=== PATIENT | male | born 1965 | race Two or more races ===

== ENCOUNTER 2019-05-03 19:53 | Emergency (ER) | payer MEDICAID ==
[~2019-05-03] VITALS: Ht 165.1 cm; Wt 78.9 kg
--- NOTE | 2019-05-03 20:10 | NUR ---
ED Nurse Note: Pt ambulated to ED from home c/o N/D and fever since sat. Pt states being unable to drink or eat much. Pt A&Ox4
[2019-05-03 20:13] VITALS: BP 149/92
[2019-05-03] MEDS ORDERED: Ketorolac 30mg Inj IV ONE (20:30)
[2019-05-03] MEDS ORDERED: Omnipaque-300 100ml vial INJ PRN (20:30)
[2019-05-03 20:42] LABS: BASOPHILS % (AUTO) 0.4 % (0.0-2.0); HEMATOCRIT 44.5 % (42.0-52.0); HEMOGLOBIN 15.2 G/DL (14.2-18.0); LYMPHOCYTES % (AUTO) 15.9 % (20.0-45.0); MEAN CORPUSCULAR VOLUME 85 FL (80-99); MONOCYTES % (AUTO) 8.3 % (1.0-10.0); NEUTROPHILS % (AUTO) 75.4 % (45.0-75.0); PLATELET COUNT 207 K/UL (150-450); RED BLOOD COUNT 5.22 M/UL (4.70-6.10); RED CELL DISTRIBUTION WIDTH 11.1 % (11.6-14.8); WHITE BLOOD COUNT 9.1 K/UL (4.8-10.8)
[2019-05-03 21:16] LABS: BILIRUBIN, URINE NEGATIVE (NEGATIVE); GLUCOSE, URINE (UA) NEGATIVE (NEGATIVE); KETONES,URINE NEGATIVE (NEGATIVE); LEUKOCYTE ESTERASE ,URINE NEGATIVE (NEGATIVE); NITRITE,URINE NEGATIVE (NEGATIVE); PH,URINE 6 (4.5-8.0); PROTEIN,URINE 2+ (NEGATIVE); UROBILINOGEN,URINE NORMAL MG/DL (0.0-1.0)
[2019-05-03 21:21] LABS: ANION GAP 8 mmol/L (5-15); BLOOD UREA NITROGEN 12 mg/dL (7-18); CARBON DIOXIDE 29 MMOL/L (21-32); CHLORIDE 103 MMOL/L (98-107); CREATININE 1.1 MG/DL (0.55-1.30); POTASSIUM 3.4 MMOL/L (3.5-5.1); SODIUM 140 MMOL/L (136-145)
[2019-05-03 21:26] LABS: ALANINE AMINOTRANSFERASE 32 U/L (12-78); ALBUMIN 3.7 G/DL (3.4-5.0); ALBUMIN/GLOBULIN RATIO 0.9 (1.0-2.7); ALKALINE PHOSPHATASE 95 U/L (46-116); ASPARTATE AMINO TRANSFERASE 23 U/L (15-37); BILIRUBIN,TOTAL 0.6 MG/DL (0.2-1.0)
[2019-05-03 21:30] LABS: APPEARANCE,URINE SLIGHTLY CLOUDY; COLOR,URINE YELLOW
--- NOTE | 2019-05-03 22:02 | Emergency Room Report ---
History of Present Illness General Chief Complaint: Nausea, Vomiting, and Diarrhea Source: Patient (Charan John MD) Present Illness HPI 53-year-old male presents ED for evaluation. Patient complaining of abdominal pain with diarrhea and fever. Pain is cramping, dull, 8 out of 10, nonradiating. Temp 100.8 in triage. Has multiple little loose stools. Denies recent travel. States that he just completed a prescription for antibiotics for a tooth infection. No other aggravating relieving factors. Denies any other associated symptoms (Charan John MD) Allergies: Uncoded Allergies: SEASONAL (Allergy, Unknown, 05/03/19) Patient History Past Medical History: none Past Surgical History: none Pertinent Family History: none Social History: Denies: smoking, alcohol use, drug use Immunizations: UTD Reviewed Nursing Documentation: PMH: Agreed; PSxH: Agreed (Charan John MD) Nursing Documentation-PMH Past Medical History: No Stated History (Charan John MD) Review of Systems All Other Systems: negative except mentioned in HPI (Charan John MD) Physical Exam Vital Signs Date Time Temp Pulse Resp B/P (MAP) Pulse Ox O2 Delivery O2 Flow Rate FiO2 05/03/19 19:58 100.8 102 18 149/92 (111) 94 Room Air Sp02 EP Interpretation: reviewed, normal General Appearance: no apparent distress, alert, GCS 15, non-toxic Head: normocephalic, atraumatic Eyes: bilateral eye normal inspection, bilateral eye PERRL ENT: hearing grossly normal, normal pharynx, no angioedema, normal voice Neck: full range of motion, supple/symm/no masses Respiratory: chest non-tender, lungs clear, normal breath sounds, speaking full sentences Cardiovascular #1: regular rate, rhythm, no edema Cardiovascular #2: 2+ carotid (R), 2+ carotid (L), 2+ radial (R), 2+ radial (L) , 2+ dorsalis pedis (R), 2+ dorsalis pedis (L) Gastrointestinal: normal bowel sounds, soft, non-distended, no guarding, no rebound, tenderness - LUQ Rectal: deferred Genitourinary: normal inspection, no CVA tenderness Musculoskeletal: back normal, gait/station normal, normal range of motion, non- tender Neurologic: alert, oriented x3, responsive, motor strength/tone normal, sensory intact, speech normal Psychiatric: judgement/insight normal, memory normal, mood/affect normal, no suicidal/homicidal ideation Reflexes: 3+ bicep (R), 3+ bicep (L), 3+ tricep (R), 3+ tricep (L), 3+ knee (R) , 3+ knee (L) Lymphatic: no adenopathy (Charan John MD) Medical Decision Making Diagnostic Impression: Primary Impression: Colitis Labs Test 05/03/19 20:10 05/03/19 20:30 Urine Color Yellow Urine Appearance Slightly cloudy Urine pH 6 (4.5-8.0) Urine Specific [place] 1.020 (1.005-1.035) Urine Protein 2+ (NEGATIVE) Urine Glucose (UA) Negative (NEGATIVE) Urine Ketones Negative (NEGATIVE) Urine Blood 3+ (NEGATIVE) Urine Nitrite Negative (NEGATIVE) Urine Bilirubin Negative (NEGATIVE) Urine Urobilinogen Normal MG/DL (0.0-1.0) Urine Leukocyte Esterase Negative (NEGATIVE) Urine RBC 5-10 /HPF (0 - 0) Urine WBC 0-2 /HPF (0 - 0) Urine Squamous Epithelial Cells Occasional /LPF Urine Bacteria Moderate /HPF (NONE) Urine Mucus Many /LPF (NONE/OCC) White Blood Count 9.1 K/UL (4.8-10.8) Red Blood Count 5.22 M/UL (4.70-6.10) Hemoglobin 15.2 G/DL (14.2-18.0) Hematocrit 44.5 % (42.0-52.0) Mean Corpuscular Volume 85 FL (80-99) Mean Corpuscular Hemoglobin 29.1 PG (27.0-31.0) Mean Corpuscular Hemoglobin Concent 34.1 G/DL (32.0-36.0) Red Cell Distribution Width 11.1 % (11.6-14.8) Platelet Count 207 K/UL (150-450) Mean Platelet Volume 6.8 FL (6.5-10.1) Neutrophils (%) (Auto) 75.4 % (45.0-75.0) Lymphocytes (%) (Auto) 15.9 % (20.0-45.0) Monocytes (%) (Auto) 8.3 % (1.0-10.0) Eosinophils (%) (Auto) 0.0 % (0.0-3.0) Basophils (%) (Auto) 0.4 % (0.0-2.0) Sodium Level 140 MMOL/L (136-145) Potassium Level 3.4 MMOL/L (3.5-5.1) Chloride Level 103 MMOL/L (98-107) Carbon Dioxide Level 29 MMOL/L (21-32) Anion Gap 8 mmol/L (5-15) Blood Urea Nitrogen 12 mg/dL (7-18) Creatinine 1.1 MG/DL (0.55-1.30) Estimat Glomerular Filtration Rate > 60 mL/min (>60) Glucose Level 124 MG/DL (74-106) Calcium Level 9.0 MG/DL (8.5-10.1) Total Bilirubin 0.6 MG/DL (0.2-1.0) Aspartate Amino Transf (AST/SGOT) 23 U/L (15-37) Alanine Aminotransferase (ALT/SGPT) 32 U/L (12-78) Alkaline Phosphatase 95 U/L (46-116) Total Protein 7.6 G/DL (6.4-8.2) Albumin 3.7 G/DL (3.4-5.0) Globulin 3.9 g/dL Albumin/Globulin Ratio 0.9 (1.0-2.7) Lipase 111 U/L (73-393) (Charan John MD) ER Course Patient signed out to me. He presents with chief complaint of abdominal pain is mostly epigastric and left upper quadrant radiating around to the left lower quadrant area. CT scan show colitis of the transverse and descending colon. Labs unremarkable. Pain is well controlled. Will discharge home with antibiotics. (Abdirashid Joyce MD) CT/MRI/US Diagnostic Results CT/MRI/US Diagnostic Results : Imaging Test Ordered: CT abdomen pelvis Impression Read by radiologist. There is mucosal thickening of the transverse and descending colon consistent with colitis. (Abdirashid Joyce MD) Last Vital Signs Date Time Temp Pulse Resp B/P (MAP) Pulse Ox O2 Delivery O2 Flow Rate FiO2 05/03/19 20:13 100.8 78 18 149/92 94 Room Air (Charan John MD) Status: improved (Abdirashid Joyce MD) Disposition: HOME, SELF-CARE Condition: Stable Scripts Ibuprofen* (MOTRIN*) 600 Mg Tablet 600 MG ORAL THREE TIMES A DAY, #30 TAB 0 Refills Prov: Abdirashid Joyce MD 05/03/19 Metronidazole* (FLAGYL*) 500 Mg Tablet 500 MG ORAL BID, #14 TAB Prov: Abdirashid Joyce MD 05/03/19 Ciprofloxacin Hcl* (CIPROFLOXACIN HCL*) 500 Mg Tablet 500 MG ORAL Q12H, #14 TAB 0 Refills Prov: Abdirashid Joyce MD 05/03/19 Additional Instructions: Follow-up with your doctor in 7 days. Return if symptoms worsen. Charan John MD May 03, 2019 22:02 Abdirashid Joyce MD May 03, 2019 23:05
--- NOTE | 2019-05-03 22:27 | Diagnostic Imaging Report ---
Clinical Indication: Left upper quadrant pain, fever, diarrhea Technique: No oral contrast utilized, per emergency room physician request IV administration nonionic contrast. Venous phase spiral acquisition obtained through the abdomen and pelvis. Multiplanar reconstructions were generated. Total dose length product 2111 mGycm. CTDIvol(s) 33 mGy. Dose reduction achieved using automated exposure control Comparison: none Findings: There is equivocal mild wall thickening of the sigmoid and distal transverse colon. The appendix is normal. There is colonic diverticulosis. No evidence of diverticulitis. No small bowel distention. No free or loculated intraperitoneal gas or fluid is evident. The distal esophagus, stomach, duodenum are unremarkable. The liver demonstrates a subcentimeter low-attenuation lesion in segment 4A which is too small to characterize. The gallbladder, bile ducts, pancreas, spleen, adrenals, left kidney are unremarkable. The right kidney demonstrates an upper pole cortical scar, and subcentimeter low-attenuation lesions which are too small to characterize. No renal or ureteral calculi, hydronephrosis, or hydroureter demonstrated. The bladder is unremarkable. The prostate is somewhat prominent. The included lung bases demonstrate posterior dependent atelectatic changes. The bones are unremarkable. Impression: Equivocal mild sigmoid and transverse colon wall thickening. Could indicate colitis changes if real, nonspecific as regards etiology. Correlate with clinical findings No acute process otherwise Colonic diverticulosis. No evidence of diverticulitis Subcentimeter low-attenuation liver and right renal lesions, too small to characterize, likely benign simple cysts. No further follow-up necessary. Right upper pole renal scarring This agrees with the preliminary interpretation provided overnight by [facility] teleradiology service. The CT scanner at [facility] is accredited by the [employer] and the scans are performed using protocols designed to limit radiation exposure to as low as reasonably achievable to attain images of sufficient resolution adequate for diagnostic evaluation.
[2019-05-03] MEDS ORDERED: IBUPROFEN600 MG ORAL (23:00)
[2019-05-03] MEDS ORDERED: METRONIDAZOLE500 MG ORAL (23:00)
[2019-05-03] MEDS ORDERED: CIPROFLOXACIN500 M2 ORAL (23:00)
[2019-05-03 23:10] VITALS: BP 149/92
--- NOTE | 2019-05-03 23:10 | NUR ---
ER DISCHARGE NOTE: Patient is cleared to be discharged per ERMD, pt is aox4, on room air, with stable vital signs. pt was given dc and prescription instructions, pt was able to verbalize understanding, pt id band and iv site removed without complications. pt is able to ambulate with steady gait. pt took all belongings.
== END 2019-05-03 23:10 | disposition home or self-care (01) ==
LOC: EMR 20:36
DX: K52.9 Noninfective gastroenteritis and colitis, unspecified (principal)
CPT/HCPCS: 36415; 74177; 80053; 81003; 83690; 85025; 87086; 96361; 96374; 96375; J1885; J2405; Q9967; S0028; Z7502; 99284